=== PATIENT | female | born 1950 | race Two or more races ===

== ENCOUNTER → 2021-06-15 08:48 | Outpatient (CLI) | payer OTHER | END | disposition home or self-care (01) | LOC: LAB 08:48 | PROVIDERS: ATTEND Internal Medicine Hematology & Oncology | DX: D50.8 Other iron deficiency anemias (principal); R79.89 Other specified abnormal findings of blood chemistry; I10 Essential (primary) hypertension; R74.02 Elevation of levels of lactic acid dehydrogenase [LDH]; K76.89 Other specified diseases of liver; D51.1 Vitamin B12 deficiency anemia due to selective vitamin B12 malabsorption with proteinuria; D51.0 Vitamin B12 deficiency anemia due to intrinsic factor deficiency; E03.8 Other specified hypothyroidism; E06.3 Autoimmune thyroiditis; C50.919 Malignant neoplasm of unspecified site of unspecified female breast; R97.8 Other abnormal tumor markers; C25.8 Malignant neoplasm of overlapping sites of pancreas; R77.2 Abnormality of alphafetoprotein; R63.4 Abnormal weight loss; M05.29 Rheumatoid vasculitis with rheumatoid arthritis of multiple sites ==

== ENCOUNTER 2021-08-14 12:57 | Outpatient (CLI) | payer OTHER | END 2021-08-14 15:53 | disposition home or self-care (01) | LOC: LAB 12:57 | PROVIDERS: ATTEND Radiology Diagnostic Radiology | DX: R63.4 Abnormal weight loss (principal) ==

== ENCOUNTER 2021-09-05 07:45 | Outpatient (CLI) | payer OTHER | END 2021-09-05 08:03 | disposition home or self-care (01) | LOC: TOM 07:45 | PROVIDERS: ATTEND Internal Medicine Hematology & Oncology | DX: K57.90 Diverticulosis of intestine, part unspecified, without perforation or abscess without bleeding (principal); M05.29 Rheumatoid vasculitis with rheumatoid arthritis of multiple sites; R63.4 Abnormal weight loss; N28.89 Other specified disorders of kidney and ureter | CPT/HCPCS: 74177; Q9965 ==

== ENCOUNTER 2021-10-23 08:21 | Outpatient (CLI) | payer OTHER | END 2021-10-23 08:37 | disposition home or self-care (01) | LOC: NUCLEAR 08:21 | PROVIDERS: ATTEND Internal Medicine Hematology & Oncology | DX: R63.4 Abnormal weight loss (principal); M05.29 Rheumatoid vasculitis with rheumatoid arthritis of multiple sites; K80.10 Calculus of gallbladder with chronic cholecystitis without obstruction; I73.9 Peripheral vascular disease, unspecified ==

== ENCOUNTER 2021-10-25 08:23 | Outpatient (CLI) | payer OTHER | END 2021-10-25 08:25 | disposition home or self-care (01) | LOC: NUCLEAR 08:23 | PROVIDERS: ATTEND Internal Medicine Hematology & Oncology | DX: K82.9 Disease of gallbladder, unspecified (principal); K80.10 Calculus of gallbladder with chronic cholecystitis without obstruction | CPT/HCPCS: 78226; A9537; J2805 ==